=== PATIENT | male | born 1990 | race Caucasian/White ===

== ENCOUNTER 2021-05-07 18:40 | Inpatient (IN) | payer OTHER ==
[2021-05-07 19:14] VITALS: BMI 25.1
[2021-05-07] MEDS ORDERED: METHADONE HCL 10 MG TABLET (FOR DETOX USE ONLY) PO ONE (21:41)
[2021-05-07] MEDS ORDERED: MAGNESIUM HYDROX 2400MG/30ML ORAL SUSPENSION 30 ML CUP PO PRN (21:41)
[2021-05-07] MEDS ORDERED: P-EPHED 60MG/TRIPROLIDI 2.5MG TABLET PO PRN (21:41)
[2021-05-07] MEDS ORDERED: cloNIDine HCL 0.1 MG TABLET PO PRN (21:41)
[2021-05-07] MEDS ORDERED: DICYCLOMINE HCL 10 MG CAPSULE PO PRN (21:41)
[2021-05-07] MEDS ORDERED: MENTHOL/PHENOL 1 EACH UD MM PRN (21:41)
[2021-05-07] MEDS ORDERED: MAG HYDROX/AL HYDROX/SIMETH 30 ML UNIT-DOSE CUP PO PRN (21:41)
[2021-05-07] MEDS ORDERED: BISMUTH SUBSALICYLATE 524 MG/30 ML PO PRN (21:41)
[2021-05-07] MEDS ORDERED: IBUPROFEN 400 MG TABLET (FP) PO PRN (21:41)
[2021-05-07] MEDS ORDERED: NALOXONE HCL 0.4 MG/ML VIAL IM PRN (21:41)
[2021-05-07] MEDS ORDERED: MAGNESIUM CITRATE 300 ML BOTTLE PO PRN (21:41)
[2021-05-07] MEDS ORDERED: guaiFENesin 200 MG/10 ML 10 ML UNIT-DOSE CUPS PO PRN (21:41)
[2021-05-07] MEDS ORDERED: NICOTINE POLACRILEX 2 MG GUM BUC PRN (21:41)
[2021-05-07] MEDS ORDERED: NALOXONE (NARCAN) HCL 4 MG/0.1 ML SPRAY NS PRN (21:41)
[2021-05-07] MEDS ORDERED: ACETAMINOPHEN 325 MG TABLET (FP) PO PRN ×2 (21:41)
[2021-05-07] MEDS ORDERED: ONDANSETRON *ODT* 4 MG TABLET SL PRN (21:41)
[2021-05-07] MEDS: THIAMINE HCL 100 MG TABLET (FP) PO SCH (23:01)
[2021-05-07] MEDS: MELATONIN 5 MG TABLETS PO SCH (23:01)
[2021-05-07] MEDS: diazePAM 5 MG TABLET PO PRN (23:59)
[2021-05-08] MEDS ORDERED: METHADONE HCL 5 MG TABLET (FOR DETOX USE ONLY) ONE (08:47)
[2021-05-08] MEDS ORDERED: METHADONE HCL 10 MG TABLET (FOR DETOX USE ONLY) ONE (08:47)
[2021-05-08 09:27] LABS: HEMATOCRIT 32.6 % (35.4-49); HEMOGLOBIN 11.2 GM/dL (11.7-16.9); MCHC 34.2 g/dl (32.0-35.9); MEAN CELL VOLUME 87.8 fl (80-96); MEAN PLT VOLUME 8.3 fl (7.5-11.1); PLATELET COUNT 314 10^3/uL (134-434); RBC 3.72 M/mm3 (4.00-5.60); WHITE BLOOD COUNT 6.9 K/mm3 (4.0-10.0)
[2021-05-08 09:53] LABS: CALCIUM 8.6 mg/dL (8.5-10.1)
[2021-05-08 09:54] LABS: ALBUMIN 3.1 g/dl (3.4-5.0); BLOOD UREA NITROGEN 13.8 mg/dL (7-18)
[2021-05-08 09:57] LABS: CREATININE 0.8 mg/dL (0.55-1.3)
[2021-05-08 09:58] LABS: BILIRUBIN,TOTAL 0.2 mg/dL (0.2-1); TOT PROT 6.4 g/dl (6.4-8.2)
[2021-05-08] MEDS ORDERED: METHADONE (DETOX) 20 MG, METHADONE (DETOX) 5 MG PO ONE (10:00)
[2021-05-08] MEDS: PRENATAL VITAMINS W/ FOLIC ACID TABLET (FP) PO SCH (10:33)
[2021-05-08] MEDS: diazePAM 5 MG TABLET PO PRN ×3 (10:34→19:03)
[2021-05-08] MEDS: METHOCARBAMOL 500 MG TABLET PO PRN (14:45)
[2021-05-08] MEDS: hydrOXYzine PAMOATE 25 MG CAPSULE (FP) PO PRN (19:03)
[2021-05-08] MEDS: THIAMINE HCL 100 MG TABLET (FP) PO SCH (23:30)
[2021-05-08] MEDS: MELATONIN 5 MG TABLETS PO SCH (23:30)
[2021-05-09] MEDS: diazePAM 5 MG TABLET PO PRN ×4 (07:27→22:25)
[2021-05-09] MEDS ORDERED: METHADONE HCL 10 MG TABLET (FOR DETOX USE ONLY) PO ONE (10:00)
[2021-05-09] MEDS: hydrOXYzine PAMOATE 25 MG CAPSULE (FP) PO PRN ×3 (10:12→22:27)
[2021-05-09] MEDS: METHOCARBAMOL 500 MG TABLET PO PRN ×2 (10:12→17:56)
[2021-05-09] MEDS: PRENATAL VITAMINS W/ FOLIC ACID TABLET (FP) PO SCH (10:12)
[2021-05-09] MEDS: THIAMINE HCL 100 MG TABLET (FP) PO SCH (22:22)
[2021-05-09] MEDS: MELATONIN 5 MG TABLETS PO SCH (22:22)
[2021-05-10] MEDS ORDERED: METHADONE HCL 10 MG TABLET (FOR DETOX USE ONLY) ONE (09:44)
[2021-05-10] MEDS ORDERED: METHADONE HCL 5 MG TABLET (FOR DETOX USE ONLY) ONE (09:45)
[2021-05-10] MEDS: PRENATAL VITAMINS W/ FOLIC ACID TABLET (FP) PO SCH (09:51)
[2021-05-10] MEDS: hydrOXYzine PAMOATE 25 MG CAPSULE (FP) PO PRN ×3 (09:51→22:19)
[2021-05-10] MEDS: METHOCARBAMOL 500 MG TABLET PO PRN ×2 (09:51→17:37)
[2021-05-10] MEDS: diazePAM 5 MG TABLET PO PRN ×3 (09:52→22:19)
[2021-05-10] MEDS ORDERED: METHADONE (DETOX) 10 MG, METHADONE (DETOX) 5 MG PO ONE (10:00)
[2021-05-10] MEDS ORDERED: diazePAM 5 MG TABLET PO PRN ×4 (18:10→23:00)
[2021-05-10] MEDS: THIAMINE HCL 100 MG TABLET (FP) PO SCH (22:18)
[2021-05-10] MEDS: MELATONIN 5 MG TABLETS PO SCH (22:19)
[2021-05-11] MEDS: METHOCARBAMOL 500 MG TABLET PO PRN ×4 (03:15→21:42)
[2021-05-11] MEDS: diazePAM 5 MG TABLET PO PRN ×4 (03:15→21:42)
[2021-05-11] MEDS: hydrOXYzine PAMOATE 25 MG CAPSULE (FP) PO PRN ×3 (09:51→21:42)
[2021-05-11] MEDS: PRENATAL VITAMINS W/ FOLIC ACID TABLET (FP) PO SCH (09:52)
[2021-05-11] MEDS ORDERED: METHADONE HCL 10 MG TABLET (FOR DETOX USE ONLY) PO ONE (10:00)
[2021-05-11] MEDS: THIAMINE HCL 100 MG TABLET (FP) PO SCH (21:43)
[2021-05-11] MEDS: MELATONIN 5 MG TABLETS PO SCH (21:43)
[2021-05-12] MEDS: METHOCARBAMOL 500 MG TABLET PO PRN (05:31)
[2021-05-12] MEDS: hydrOXYzine PAMOATE 25 MG CAPSULE (FP) PO PRN (05:31)
[2021-05-12] MEDS ORDERED: METHADONE HCL 5 MG TABLET (FOR DETOX USE ONLY) PO ONE (06:00)
[2021-05-12 09:27] VITALS: BP 119/82; PULSE 100; TEMP 96.6
== END 2021-05-12 09:15 | disposition home or self-care (01) | DRG 773 ==
LOC: YASAS 18:40 → Y3N 21:51
PROVIDERS: ADMIT Allergy & Immunology; ATTEND Allergy & Immunology
PROC: HZ2ZZZZ Detoxification Services for Substance Abuse Treatment (ICD-10-PCS; principal; 2021-05-07)
DX: F11.23 Opioid dependence with withdrawal (principal); F12.20 Cannabis dependence, uncomplicated; F19.280 Other psychoactive substance dependence with psychoactive substance-induced anxiety disorder; F19.282 Other psychoactive substance dependence with psychoactive substance-induced sleep disorder; F19.24 Other psychoactive substance dependence with psychoactive substance-induced mood disorder; K59.03 Drug induced constipation; T40.2X5A Adverse effect of other opioids, initial encounter; Y92.238 Other place in hospital as the place of occurrence of the external cause; Z56.0 Unemployment, unspecified; Z59.0 Homelessness
CPT/HCPCS: 36415; 80053; 85027; 86780; 93005; 93010; C9803; U0003; U0005

== ENCOUNTER 2021-06-08 18:17 | Inpatient (IN) | payer OTHER ==
[2021-06-08] MEDS ORDERED: cloNIDine HCL 0.1 MG TABLET PO PRN (21:25)
[2021-06-08] MEDS ORDERED: BISMUTH SUBSALICYLATE 524 MG/30 ML PO PRN (21:25)
[2021-06-08] MEDS ORDERED: MAG HYDROX/AL HYDROX/SIMETH 30 ML UNIT-DOSE CUP PO PRN (21:25)
[2021-06-08] MEDS ORDERED: MAGNESIUM CITRATE 300 ML BOTTLE PO PRN (21:25)
[2021-06-08] MEDS ORDERED: ACETAMINOPHEN 325 MG TABLET (FP) PO PRN ×2 (21:25)
[2021-06-08] MEDS ORDERED: MENTHOL/PHENOL 1 EACH UD MM PRN (21:25)
[2021-06-08] MEDS ORDERED: methaDONE HCL 10 MG TABLET (FOR DETOX USE ONLY) PO ONE (21:25)
[2021-06-08] MEDS ORDERED: IBUPROFEN 400 MG TABLET (FP) PO PRN (21:25)
[2021-06-08] MEDS ORDERED: MAGNESIUM HYDROX 2400MG/30ML ORAL SUSPENSION 30 ML CUP PO PRN (21:25)
[2021-06-09 01:03] VITALS: BMI 24.6
[2021-06-09] MEDS: MELATONIN 5 MG TABLETS PO SCH (04:10)
[2021-06-09] MEDS ORDERED: methaDONE HCL 10 MG TABLET (FOR DETOX USE ONLY) ONE (04:22)
[2021-06-09] MEDS ORDERED: diazePAM 5 MG TABLET ONE ×2 (04:23→11:23)
[2021-06-09] MEDS: diazePAM 5 MG TABLET PO SCH ×4 (04:24→18:57)
[2021-06-09] MEDS: THIAMINE HCL 100 MG TABLET (FP) PO SCH (04:57)
[2021-06-09 10:49] LABS: HEMATOCRIT 36.4 % (35.4-49); HEMOGLOBIN 12.3 GM/dL (11.7-16.9); MCH 29.9 pg (25.7-33.7); MCHC 33.7 g/dl (32.0-35.9); MEAN CELL VOLUME 88.7 fl (80-96); MEAN PLT VOLUME 8.4 fl (7.5-11.1); PLATELET COUNT 372 10^3/uL (134-434); RDW 13.4 % (11.9-15.9)
[2021-06-09 11:24] LABS: ALBUMIN 3.2 g/dl (3.4-5.0); CALCIUM 8.8 mg/dL (8.5-10.1)
[2021-06-09 11:25] LABS: BLOOD UREA NITROGEN 18.6 mg/dL (7-18)
[2021-06-09 11:29] LABS: BILIRUBIN,TOTAL 0.3 mg/dL (0.2-1)
[2021-06-09] MEDS: PRENATAL VITAMINS W/ FOLIC ACID TABLET (FP) PO SCH (11:43)
[2021-06-09] MEDS: METHOCARBAMOL 500 MG TABLET PO PRN (20:19)
[2021-06-09] MEDS: diazePAM 5 MG TABLET PO PRN (20:56)
[2021-06-10] MEDS: diazePAM 5 MG TABLET PO SCH ×4 (00:06→21:37)
[2021-06-10] MEDS: THIAMINE HCL 100 MG TABLET (FP) PO SCH ×2 (00:06→21:33)
[2021-06-10] MEDS: MELATONIN 5 MG TABLETS PO SCH ×2 (00:06→21:36)
[2021-06-10] MEDS: METHOCARBAMOL 500 MG TABLET PO PRN ×2 (05:51→16:32)
[2021-06-10] MEDS: diazePAM 5 MG TABLET PO PRN ×3 (08:48→21:33)
[2021-06-10] MEDS ORDERED: methaDONE HCL 10 MG TABLET (FOR DETOX USE ONLY) ONE (09:19)
[2021-06-10] MEDS ORDERED: methaDONE HCL 10 MG TABLET (FOR DETOX USE ONLY) PO ONE (10:00)
[2021-06-10] MEDS: PRENATAL VITAMINS W/ FOLIC ACID TABLET (FP) PO SCH (10:06)
[2021-06-11] MEDS: diazePAM 5 MG TABLET PO SCH ×2 (07:26→17:00)
[2021-06-11] MEDS: PRENATAL VITAMINS W/ FOLIC ACID TABLET (FP) PO SCH (09:56)
[2021-06-11] MEDS: METHOCARBAMOL 500 MG TABLET PO PRN ×2 (09:57→22:08)
[2021-06-11] MEDS: diazePAM 5 MG TABLET PO PRN ×3 (09:58→18:58)
[2021-06-11] MEDS ORDERED: methaDONE HCL 10 MG TABLET (FOR DETOX USE ONLY) PO ONE (10:00)
[2021-06-11] MEDS: THIAMINE HCL 100 MG TABLET (FP) PO SCH (22:08)
[2021-06-11] MEDS: MELATONIN 5 MG TABLETS PO SCH (22:09)
[2021-06-11] MEDS ORDERED: hydrOXYzine PAMOATE 25 MG CAPSULE (FP) PO ONE (22:33)
[2021-06-12] MEDS ORDERED: diazePAM 5 MG TABLET PO ONE ×2 (06:00→18:00)
[2021-06-12] MEDS ORDERED: methaDONE HCL 10 MG TABLET (FOR DETOX USE ONLY) ONE (09:10)
[2021-06-12] MEDS ORDERED: methaDONE HCL 10 MG TABLET (FOR DETOX USE ONLY) PO ONE (10:00)
[2021-06-12] MEDS: hydrOXYzine PAMOATE 50 MG CAPSULE (FP) PO PRN ×2 (10:11→17:57)
[2021-06-12] MEDS: METHOCARBAMOL 500 MG TABLET PO PRN ×2 (10:11→17:57)
[2021-06-12] MEDS: PRENATAL VITAMINS W/ FOLIC ACID TABLET (FP) PO SCH (10:12)
[2021-06-12] MEDS: THIAMINE HCL 100 MG TABLET (FP) PO SCH (23:11)
[2021-06-12] MEDS: MELATONIN 5 MG TABLETS PO SCH (23:11)
[2021-06-13] MEDS: hydrOXYzine PAMOATE 50 MG CAPSULE (FP) PO PRN (08:52)
[2021-06-13 09:14] VITALS: BP 115/72; PULSE 76; TEMP 97.3
[2021-06-13] MEDS ORDERED: diazePAM 5 MG TABLET PO ONE (10:00)
[2021-06-13] MEDS ORDERED: methaDONE HCL 10 MG TABLET (FOR DETOX USE ONLY) PO ONE (10:00)
[2021-06-13] MEDS: METHOCARBAMOL 500 MG TABLET PO PRN (10:09)
[2021-06-13] MEDS: PRENATAL VITAMINS W/ FOLIC ACID TABLET (FP) PO SCH (10:09)
== END 2021-06-13 11:00 | disposition home or self-care (01) | DRG 773 ==
LOC: YASAS 18:17 → Y3N 06-09 11:08
PROVIDERS: ADMIT Allergy & Immunology; ATTEND Allergy & Immunology
PROC: HZ2ZZZZ Detoxification Services for Substance Abuse Treatment (ICD-10-PCS; principal; 2021-06-09)
DX: F11.23 Opioid dependence with withdrawal (principal); F13.230 Sedative, hypnotic or anxiolytic dependence with withdrawal, uncomplicated; F12.20 Cannabis dependence, uncomplicated; F14.10 Cocaine abuse, uncomplicated; L90.5 Scar conditions and fibrosis of skin; Z56.0 Unemployment, unspecified
CPT/HCPCS: 36415; 80053; 85027; 86780; C9803; U0003; U0005

== ENCOUNTER 2022-11-11 17:20 | Inpatient (IN) | payer OTHER ==
[2022-11-11 17:53] VITALS: BMI 23.6
[2022-11-11] MEDS ORDERED: MAGNESIUM HYDROX 2400MG/30ML ORAL SUSPENSION 30 ML CUP PO PRN (19:25)
[2022-11-11] MEDS ORDERED: LOPERAMIDE HCL 2 MG CAPSULE PO PRN (19:25)
[2022-11-11] MEDS ORDERED: P-EPHED 60MG/TRIPROLIDI 2.5MG TABLET PO PRN (19:25)
[2022-11-11] MEDS ORDERED: POLYETHYLENE GLYCOL (HEALTHYLAX) 3350 17 GM PACKET PO PRN (19:25)
[2022-11-11] MEDS ORDERED: guaiFENesin 200 MG/10 ML 10 ML UNIT-DOSE CUPS PO PRN (19:25)
[2022-11-11] MEDS ORDERED: ACETAMINOPHEN 325 MG TABLET (FP) PO PRN (19:25)
[2022-11-11] MEDS ORDERED: IBUPROFEN 400 MG TABLET (FP) PO PRN (19:25)
[2022-11-11] MEDS ORDERED: MAG HYDROX/AL HYDROX/SIMETH 30 ML UNIT-DOSE CUP PO PRN (19:25)
[2022-11-11] MEDS ORDERED: NICOTINE 10 MG CARTRIDGE (INHALER) IH PRN (19:25)
[2022-11-11] MEDS ORDERED: BENZOCAINE/MENTHOL (CHLORASEPTIC ) LOZENGE MM PRN (19:25)
[2022-11-11] MEDS: MELATONIN 5 MG TABLETS PO SCH (21:56)
[2022-11-11] MEDS: THIAMINE HCL 100 MG TABLET (FP) PO SCH (21:56)
[2022-11-11] MEDS: BACITRACIN 15 GM TUBE TOPICAL OINTMENT TP SCH (21:57)
[2022-11-12] MEDS ORDERED: methaDONE HCL 10 MG TABLET PO ONE (06:00)
[2022-11-12] MEDS: methaDONE 40 MG, methaDONE 30 MG PO SCH (06:31)
[2022-11-12 08:50] LABS: PH,URINE 6.5 (5.0-8.0); URINE APPEARANCE CLEAR; URINE BILIRUBIN NEGATIVE (NEGATIVE); URINE COLOR YELLOW; URINE GLUCOSE (UA) NEGATIVE (NEGATIVE); URINE KETONE NEGATIVE (NEGATIVE); URINE LEUK ESTERASE NEGATIVE (NEGATIVE); URINE NITRITE NEGATIVE (NEGATIVE); URINE PROTEIN NEGATIVE (NEGATIVE)
[2022-11-12] MEDS: BACITRACIN 15 GM TUBE TOPICAL OINTMENT TP SCH ×2 (10:10→21:41)
[2022-11-12] MEDS: NICOTINE 7 MG/24 HOURS TOPICAL PATCH TD SCH (10:10)
[2022-11-12] MEDS: PRENATAL VITAMINS W/ FOLIC ACID TABLET (FP) PO SCH (10:11)
[2022-11-12] MEDS: MELATONIN 5 MG TABLETS PO SCH (21:41)
[2022-11-12] MEDS: THIAMINE HCL 100 MG TABLET (FP) PO SCH (21:41)
[2022-11-13] MEDS: methaDONE 40 MG, methaDONE 30 MG PO SCH (05:49)
[2022-11-13] MEDS ORDERED: methaDONE HCL 10 MG TABLET PO ONE (06:00)
[2022-11-13] MEDS: NICOTINE 7 MG/24 HOURS TOPICAL PATCH TD SCH (09:47)
[2022-11-13] MEDS: BACITRACIN 15 GM TUBE TOPICAL OINTMENT TP SCH ×2 (09:47→21:46)
[2022-11-13] MEDS: PRENATAL VITAMINS W/ FOLIC ACID TABLET (FP) PO SCH (09:47)
[2022-11-13] MEDS ORDERED: PRENATAL VITAMINS W/ FOLIC ACID TABLET (FP) PO PRN (13:16)
[2022-11-13] MEDS ORDERED: NICOTINE 7 MG/24 HOURS TOPICAL PATCH TD PRN (13:16)
[2022-11-13] MEDS: THIAMINE HCL 100 MG TABLET (FP) PO SCH (21:46)
[2022-11-13] MEDS: MELATONIN 5 MG TABLETS PO SCH (21:46)
[2022-11-14] MEDS ORDERED: methaDONE HCL 10 MG TABLET PO SCH (09:30)
[2022-11-14] MEDS: BACITRACIN 15 GM TUBE TOPICAL OINTMENT TP SCH ×2 (10:45→21:47)
[2022-11-14] MEDS: methaDONE 40 MG, methaDONE 30 MG PO SCH (10:45)
[2022-11-14 18:57] LABS: HEMATOCRIT 43.5 % (35.4-49); HEMOGLOBIN 14.4 GM/dL (11.7-16.9); MCHC 33.1 g/dl (32.0-35.9); MEAN CELL VOLUME 87.6 fl (80-96); MEAN PLT VOLUME 8.3 fl (7.5-11.1); PLATELET COUNT 406 10^3/uL (134-434); RBC 4.96 M/mm3 (4.00-5.60); RDW 14.3 % (11.9-15.9); WHITE BLOOD COUNT 8.4 K/mm3 (4.0-10.0)
[2022-11-14 19:04] LABS: CALCIUM 9.6 mg/dL (8.5-10.1)
[2022-11-14 19:05] LABS: ALBUMIN 4.2 g/dl (3.4-5.0); BLOOD UREA NITROGEN 16.3 mg/dL (7-18)
[2022-11-14 19:08] LABS: CREATININE 0.9 mg/dL (0.55-1.3)
[2022-11-14 19:10] LABS: BILIRUBIN,TOTAL 0.5 mg/dL (0.2-1); TOT PROT 8.6 g/dl (6.4-8.2)
[2022-11-14] MEDS: MELATONIN 5 MG TABLETS PO SCH (21:47)
[2022-11-14] MEDS: THIAMINE HCL 100 MG TABLET (FP) PO SCH (21:47)
[2022-11-15] MEDS: methaDONE 40 MG, methaDONE 30 MG PO SCH (05:55)
[2022-11-15] MEDS: BACITRACIN 15 GM TUBE TOPICAL OINTMENT TP SCH ×2 (10:15→21:58)
[2022-11-15] MEDS: hydrOXYzine PAMOATE 25 MG CAPSULE (FP) PO PRN (21:21)
[2022-11-15] MEDS: MELATONIN 5 MG TABLETS PO SCH (21:21)
[2022-11-15] MEDS: THIAMINE HCL 100 MG TABLET (FP) PO SCH (21:21)
[2022-11-16] MEDS: methaDONE 40 MG, methaDONE 30 MG PO SCH (06:12)
[2022-11-16] MEDS: BACITRACIN 15 GM TUBE TOPICAL OINTMENT TP SCH ×2 (10:44→21:29)
[2022-11-16 13:34] LABS: HIV INTERPRETATION NEGATIVE (NEGATIVE)
[2022-11-16] MEDS: MELATONIN 5 MG TABLETS PO SCH (21:28)
[2022-11-16] MEDS: THIAMINE HCL 100 MG TABLET (FP) PO SCH (21:28)
[2022-11-16] MEDS: hydrOXYzine PAMOATE 25 MG CAPSULE (FP) PO PRN (21:29)
[2022-11-17] MEDS: methaDONE 40 MG, methaDONE 30 MG PO SCH (06:00)
[2022-11-17] MEDS: BACITRACIN 15 GM TUBE TOPICAL OINTMENT TP SCH ×2 (10:50→21:44)
[2022-11-17] MEDS: hydrOXYzine PAMOATE 25 MG CAPSULE (FP) PO PRN (21:43)
[2022-11-17] MEDS: THIAMINE HCL 100 MG TABLET (FP) PO SCH (21:43)
[2022-11-17] MEDS: MELATONIN 5 MG TABLETS PO SCH (21:43)
[2022-11-18] MEDS: methaDONE 40 MG, methaDONE 30 MG PO SCH (06:18)
[2022-11-18] MEDS: BACITRACIN 15 GM TUBE TOPICAL OINTMENT TP SCH ×2 (10:26→21:28)
[2022-11-18] MEDS: MELATONIN 5 MG TABLETS PO SCH (21:28)
[2022-11-18] MEDS: hydrOXYzine PAMOATE 25 MG CAPSULE (FP) PO PRN (21:28)
[2022-11-18] MEDS: THIAMINE HCL 100 MG TABLET (FP) PO SCH (21:28)
[2022-11-19] MEDS: methaDONE 40 MG, methaDONE 30 MG PO SCH (05:39)
[2022-11-19] MEDS: BACITRACIN 15 GM TUBE TOPICAL OINTMENT TP SCH ×2 (10:37→21:36)
[2022-11-19] MEDS: hydrOXYzine PAMOATE 25 MG CAPSULE (FP) PO PRN (21:36)
[2022-11-19] MEDS: MELATONIN 5 MG TABLETS PO SCH (21:36)
[2022-11-19] MEDS: THIAMINE HCL 100 MG TABLET (FP) PO SCH (21:36)
[2022-11-20] MEDS: methaDONE 40 MG, methaDONE 30 MG PO SCH (06:16)
[2022-11-20] MEDS: BACITRACIN 15 GM TUBE TOPICAL OINTMENT TP SCH ×2 (10:07→21:19)
[2022-11-20] MEDS: THIAMINE HCL 100 MG TABLET (FP) PO SCH (21:18)
[2022-11-20] MEDS: MELATONIN 5 MG TABLETS PO SCH (21:18)
[2022-11-20] MEDS: hydrOXYzine PAMOATE 25 MG CAPSULE (FP) PO PRN (21:19)
[2022-11-21] MEDS: methaDONE 40 MG, methaDONE 30 MG PO SCH (05:47)
[2022-11-21 06:53] VITALS: RESP 18
[2022-11-21] MEDS: BACITRACIN 15 GM TUBE TOPICAL OINTMENT TP SCH ×2 (10:39→21:31)
[2022-11-21] MEDS: hydrOXYzine PAMOATE 25 MG CAPSULE (FP) PO PRN (21:31)
[2022-11-21] MEDS: MELATONIN 5 MG TABLETS PO SCH (21:31)
[2022-11-21] MEDS: THIAMINE HCL 100 MG TABLET (FP) PO SCH (21:31)
[2022-11-22] MEDS: methaDONE 40 MG, methaDONE 30 MG PO SCH (06:13)
[2022-11-22] MEDS: BACITRACIN 15 GM TUBE TOPICAL OINTMENT TP SCH ×2 (10:46→21:08)
[2022-11-22] MEDS: MELATONIN 5 MG TABLETS PO SCH (21:07)
[2022-11-22] MEDS: hydrOXYzine PAMOATE 25 MG CAPSULE (FP) PO PRN (21:07)
[2022-11-22] MEDS: THIAMINE HCL 100 MG TABLET (FP) PO SCH (21:08)
[2022-11-23] MEDS: methaDONE 40 MG, methaDONE 30 MG PO SCH (06:13)
[2022-11-23] MEDS: BACITRACIN 15 GM TUBE TOPICAL OINTMENT TP SCH ×2 (10:14→21:25)
[2022-11-23] MEDS: MELATONIN 5 MG TABLETS PO SCH (21:25)
[2022-11-23] MEDS: hydrOXYzine PAMOATE 25 MG CAPSULE (FP) PO PRN (21:25)
[2022-11-23] MEDS: THIAMINE HCL 100 MG TABLET (FP) PO SCH (21:25)
[2022-11-24] MEDS: methaDONE 40 MG, methaDONE 30 MG PO SCH (06:00)
[2022-11-24 06:38] VITALS: BP 117/58; PULSE 79; TEMP 98
[2022-11-24] MEDS: BACITRACIN 15 GM TUBE TOPICAL OINTMENT TP SCH (10:10)
== END 2022-11-24 16:00 | disposition home or self-care (01) | DRG 772 ==
LOC: YASAS 17:20 → Y3W 21:13
PROVIDERS: ADMIT Allergy & Immunology; ATTEND Psychiatry & Neurology Pain Medicine
PROC: HZ42ZZZ Group Counseling for Substance Abuse Treatment, Cognitive-Behavioral (ICD-10-PCS; principal; 2022-11-11)
DX: F11.20 Opioid dependence, uncomplicated (principal); F10.20 Alcohol dependence, uncomplicated; F14.20 Cocaine dependence, uncomplicated; F19.280 Other psychoactive substance dependence with psychoactive substance-induced anxiety disorder; F32.A Depression, unspecified; Z28.310 Unvaccinated for COVID-19; Z28.9 Immunization not carried out for unspecified reason; Z56.0 Unemployment, unspecified; Z59.01 Sheltered homelessness
CPT/HCPCS: 36415; 80053; 81003; 85027; 86780; 86803; 87389; C9803-CS; U0003; U0005

== ENCOUNTER 2023-01-30 20:55 | Inpatient (IN) | payer OTHER ==
[2023-01-30 21:40] VITALS: BMI 24.6
[2023-01-30] MEDS ORDERED: ACETAMINOPHEN 325 MG TABLET (FP) PO PRN (22:07)
[2023-01-30] MEDS ORDERED: NALOXONE HCL 0.4 MG/ML VIAL IM PRN (22:07)
[2023-01-30] MEDS ORDERED: MAGNESIUM HYDROX 2400MG/30ML ORAL SUSPENSION 30 ML CUP PO PRN (22:07)
[2023-01-30] MEDS ORDERED: POLYETHYLENE GLYCOL (HEALTHYLAX) 3350 17 GM PACKET PO PRN (22:07)
[2023-01-30] MEDS ORDERED: BENZONATATE 200 MG CAPSULE PO PRN (22:07)
[2023-01-30] MEDS ORDERED: guaiFENesin 600 MG TABLET.ER (FP) PO PRN (22:07)
[2023-01-30] MEDS ORDERED: hydrOXYzine PAMOATE 25 MG CAPSULE (FP) PO PRN (22:07)
[2023-01-30] MEDS ORDERED: BENZOCAINE/MENTHOL (CHLORASEPTIC ) LOZENGE MM PRN (22:07)
[2023-01-30] MEDS ORDERED: NALOXONE HCL (KLOXXADO) 8 MG SPRAY NS PRN (22:07)
[2023-01-30] MEDS ORDERED: IBUPROFEN 400 MG TABLET (FP) PO PRN (22:07)
[2023-01-30] MEDS ORDERED: MAG HYDROX/AL HYDROX/SIMETH 30 ML UNIT-DOSE CUP PO PRN (22:07)
[2023-01-30] MEDS ORDERED: LOPERAMIDE HCL 2 MG CAPSULE PO PRN (22:07)
[2023-01-30] MEDS: MELATONIN 5 MG TABLETS PO SCH (23:12)
[2023-01-31] MEDS: PRENATAL VITAMINS W/ FOLIC ACID TABLET (FP) PO SCH (10:11)
[2023-01-31] MEDS: methaDONE HCL 40 MG DISPERSABLE TABLET PO SCH (10:11)
[2023-01-31] MEDS: THIAMINE HCL 100 MG TABLET (FP) PO SCH (21:45)
[2023-01-31] MEDS: MELATONIN 5 MG TABLETS PO SCH (21:45)
[2023-02-01] MEDS: methaDONE HCL 40 MG DISPERSABLE TABLET PO SCH (06:55)
[2023-02-01] MEDS: PRENATAL VITAMINS W/ FOLIC ACID TABLET (FP) PO SCH (10:49)
[2023-02-01 11:18] LABS: HEMATOCRIT 36.5 % (35.4-49); HEMOGLOBIN 12.3 GM/dL (11.7-16.9); MCHC 33.8 g/dl (32.0-35.9); MEAN CELL VOLUME 85.6 fl (80-96); MEAN PLT VOLUME 8.3 fl (7.5-11.1); PLATELET COUNT 377 10^3/uL (134-434); RBC 4.26 M/mm3 (4.00-5.60); WHITE BLOOD COUNT 5.5 K/mm3 (4.0-10.0)
[2023-02-01 11:28] LABS: CALCIUM 9.3 mg/dL (8.5-10.1)
[2023-02-01 11:29] LABS: ALBUMIN 3.5 g/dl (3.4-5.0)
[2023-02-01 11:32] LABS: CREATININE 0.9 mg/dL (0.55-1.3)
[2023-02-01 11:33] LABS: BILIRUBIN,TOTAL 0.4 mg/dL (0.2-1); TOT PROT 7.4 g/dl (6.4-8.2)
[2023-02-01 11:38] LABS: BLOOD UREA NITROGEN 15.7 mg/dL (7-18)
[2023-02-01 13:50] LABS: HIV INTERPRETATION NEGATIVE (NEGATIVE)
[2023-02-01] MEDS: THIAMINE HCL 100 MG TABLET (FP) PO SCH (21:53)
[2023-02-01] MEDS: MELATONIN 5 MG TABLETS PO SCH (21:53)
[2023-02-02] MEDS: methaDONE HCL 40 MG DISPERSABLE TABLET PO SCH (06:42)
[2023-02-02] MEDS: PRENATAL VITAMINS W/ FOLIC ACID TABLET (FP) PO SCH (10:31)
[2023-02-02] MEDS: MELATONIN 5 MG TABLETS PO SCH (21:32)
[2023-02-02] MEDS: THIAMINE HCL 100 MG TABLET (FP) PO SCH (21:32)
[2023-02-03] MEDS: methaDONE HCL 40 MG DISPERSABLE TABLET PO SCH (06:31)
[2023-02-03] MEDS: PRENATAL VITAMINS W/ FOLIC ACID TABLET (FP) PO SCH (10:10)
[2023-02-03] MEDS: MELATONIN 5 MG TABLETS PO SCH (21:51)
[2023-02-03] MEDS: THIAMINE HCL 100 MG TABLET (FP) PO SCH (21:51)
[2023-02-04] MEDS: methaDONE HCL 40 MG DISPERSABLE TABLET PO SCH (06:10)
[2023-02-04] MEDS: PRENATAL VITAMINS W/ FOLIC ACID TABLET (FP) PO SCH (10:15)
[2023-02-04] MEDS: THIAMINE HCL 100 MG TABLET (FP) PO SCH (21:48)
[2023-02-04] MEDS: MELATONIN 5 MG TABLETS PO SCH (21:48)
[2023-02-05] MEDS: methaDONE HCL 40 MG DISPERSABLE TABLET PO SCH (06:24)
[2023-02-05] MEDS: PRENATAL VITAMINS W/ FOLIC ACID TABLET (FP) PO SCH (10:20)
[2023-02-05] MEDS: MELATONIN 5 MG TABLETS PO SCH (21:53)
[2023-02-05] MEDS: THIAMINE HCL 100 MG TABLET (FP) PO SCH (21:53)
[2023-02-06] MEDS: methaDONE HCL 40 MG DISPERSABLE TABLET PO SCH (06:18)
[2023-02-06] MEDS: PRENATAL VITAMINS W/ FOLIC ACID TABLET (FP) PO SCH (11:16)
[2023-02-06] MEDS: THIAMINE HCL 100 MG TABLET (FP) PO SCH (21:51)
[2023-02-06] MEDS: MELATONIN 5 MG TABLETS PO SCH (21:51)
[2023-02-07] MEDS: methaDONE HCL 40 MG DISPERSABLE TABLET PO SCH (06:19)
[2023-02-07] MEDS ORDERED: COLLOIDAL OATMEAL 1 BAR EACH TP PRN (09:34)
[2023-02-07] MEDS: PRENATAL VITAMINS W/ FOLIC ACID TABLET (FP) PO SCH (10:57)
[2023-02-07] MEDS: MELATONIN 5 MG TABLETS PO SCH (21:42)
[2023-02-07] MEDS: THIAMINE HCL 100 MG TABLET (FP) PO SCH (21:42)
[2023-02-08] MEDS: methaDONE HCL 40 MG DISPERSABLE TABLET PO SCH (06:28)
[2023-02-08] MEDS: PRENATAL VITAMINS W/ FOLIC ACID TABLET (FP) PO SCH (09:52)
[2023-02-08] MEDS: COLLOIDAL OATMEAL 1 BAR EACH TP PRN (13:30)
[2023-02-08] MEDS: MELATONIN 5 MG TABLETS PO SCH (21:28)
[2023-02-08] MEDS: THIAMINE HCL 100 MG TABLET (FP) PO SCH (21:28)
[2023-02-09] MEDS: methaDONE HCL 40 MG DISPERSABLE TABLET PO SCH (06:25)
[2023-02-09] MEDS: PRENATAL VITAMINS W/ FOLIC ACID TABLET (FP) PO SCH (10:41)
[2023-02-09] MEDS: MELATONIN 5 MG TABLETS PO SCH (21:41)
[2023-02-09] MEDS: THIAMINE HCL 100 MG TABLET (FP) PO SCH (21:41)
[2023-02-10] MEDS: methaDONE HCL 40 MG DISPERSABLE TABLET PO SCH (06:39)
[2023-02-10] MEDS: PRENATAL VITAMINS W/ FOLIC ACID TABLET (FP) PO SCH (10:08)
[2023-02-10] MEDS: THIAMINE HCL 100 MG TABLET (FP) PO SCH (22:33)
[2023-02-10] MEDS: MELATONIN 5 MG TABLETS PO SCH (22:33)
[2023-02-11] MEDS: methaDONE HCL 40 MG DISPERSABLE TABLET PO SCH (06:43)
[2023-02-11] MEDS: PRENATAL VITAMINS W/ FOLIC ACID TABLET (FP) PO SCH (10:25)
[2023-02-11] MEDS: COLLOIDAL OATMEAL 1 BAR EACH TP PRN (10:26)
[2023-02-11] MEDS: MELATONIN 5 MG TABLETS PO SCH (22:33)
[2023-02-11] MEDS: THIAMINE HCL 100 MG TABLET (FP) PO SCH (22:33)
[2023-02-12] MEDS: methaDONE HCL 40 MG DISPERSABLE TABLET PO SCH (06:29)
[2023-02-12] MEDS: PRENATAL VITAMINS W/ FOLIC ACID TABLET (FP) PO SCH (11:10)
[2023-02-12] MEDS: MELATONIN 5 MG TABLETS PO SCH (22:03)
[2023-02-12] MEDS: THIAMINE HCL 100 MG TABLET (FP) PO SCH (22:03)
[2023-02-13] MEDS: methaDONE HCL 40 MG DISPERSABLE TABLET PO SCH (06:54)
[2023-02-13] MEDS: PRENATAL VITAMINS W/ FOLIC ACID TABLET (FP) PO SCH (10:28)
[2023-02-13] MEDS: MELATONIN 5 MG TABLETS PO SCH (21:48)
[2023-02-13] MEDS: THIAMINE HCL 100 MG TABLET (FP) PO SCH (21:48)
[2023-02-14] MEDS: methaDONE HCL 40 MG DISPERSABLE TABLET PO SCH (06:33)
[2023-02-14] MEDS: SALICYLIC ACID 1 APPLIC BOTTLE TP SCH ×2 (10:22→22:46)
[2023-02-14] MEDS ORDERED: PRENATAL VITAMINS W/ FOLIC ACID TABLET (FP) PO PRN (10:30)
[2023-02-14] MEDS: THIAMINE HCL 100 MG TABLET (FP) PO SCH (21:38)
[2023-02-14] MEDS: MELATONIN 5 MG TABLETS PO SCH (21:38)
[2023-02-15] MEDS: methaDONE HCL 40 MG DISPERSABLE TABLET PO SCH (06:12)
[2023-02-15] MEDS: IBUPROFEN 600 MG TABLET (FP) PO PRN (08:51)
[2023-02-15] MEDS: SALICYLIC ACID 1 APPLIC BOTTLE TP SCH ×2 (10:06→22:25)
[2023-02-15] MEDS: THIAMINE HCL 100 MG TABLET (FP) PO SCH (22:26)
[2023-02-15] MEDS: MELATONIN 5 MG TABLETS PO SCH (22:26)
[2023-02-16] MEDS: methaDONE HCL 40 MG DISPERSABLE TABLET PO SCH (05:56)
[2023-02-16] MEDS: SALICYLIC ACID 1 APPLIC BOTTLE TP SCH ×2 (09:35→21:55)
[2023-02-16] MEDS: IBUPROFEN 600 MG TABLET (FP) PO PRN (09:36)
[2023-02-16] MEDS: THIAMINE HCL 100 MG TABLET (FP) PO SCH (21:34)
[2023-02-16] MEDS: MELATONIN 5 MG TABLETS PO SCH (21:34)
[2023-02-17] MEDS: methaDONE HCL 40 MG DISPERSABLE TABLET PO SCH (06:14)
[2023-02-17] MEDS: SALICYLIC ACID 1 APPLIC BOTTLE TP SCH ×2 (10:22→22:55)
[2023-02-17] MEDS: MELATONIN 5 MG TABLETS PO SCH (22:54)
[2023-02-17] MEDS: THIAMINE HCL 100 MG TABLET (FP) PO SCH (22:54)
[2023-02-18] MEDS: methaDONE HCL 40 MG DISPERSABLE TABLET PO SCH (06:53)
[2023-02-18] MEDS: SALICYLIC ACID 1 APPLIC BOTTLE TP SCH ×2 (10:19→22:14)
[2023-02-18] MEDS: MELATONIN 5 MG TABLETS PO SCH (22:14)
[2023-02-18] MEDS: THIAMINE HCL 100 MG TABLET (FP) PO SCH (22:14)
[2023-02-19] MEDS: methaDONE HCL 40 MG DISPERSABLE TABLET PO SCH (06:14)
[2023-02-19] MEDS: SALICYLIC ACID 1 APPLIC BOTTLE TP SCH ×2 (09:51→21:46)
[2023-02-19] MEDS: MELATONIN 5 MG TABLETS PO SCH (21:46)
[2023-02-19] MEDS: THIAMINE HCL 100 MG TABLET (FP) PO SCH (21:46)
[2023-02-20] MEDS: methaDONE HCL 40 MG DISPERSABLE TABLET PO SCH (06:45)
[2023-02-20] MEDS: SALICYLIC ACID 1 APPLIC BOTTLE TP SCH ×2 (10:15→22:47)
[2023-02-20] MEDS: MELATONIN 5 MG TABLETS PO SCH (22:47)
[2023-02-20] MEDS: THIAMINE HCL 100 MG TABLET (FP) PO SCH (22:47)
[2023-02-21] MEDS: methaDONE HCL 40 MG DISPERSABLE TABLET PO SCH (05:52)
[2023-02-21] MEDS: SALICYLIC ACID 1 APPLIC BOTTLE TP SCH ×2 (10:24→22:48)
[2023-02-21] MEDS: THIAMINE HCL 100 MG TABLET (FP) PO SCH (22:48)
[2023-02-21] MEDS: MELATONIN 5 MG TABLETS PO SCH (22:48)
[2023-02-22] MEDS: methaDONE HCL 40 MG DISPERSABLE TABLET PO SCH (06:43)
[2023-02-22] MEDS: SALICYLIC ACID 1 APPLIC BOTTLE TP SCH ×2 (10:03→22:39)
[2023-02-22] MEDS: COLLOIDAL OATMEAL 1 BAR EACH TP PRN (10:16)
[2023-02-22] MEDS: THIAMINE HCL 100 MG TABLET (FP) PO SCH (22:39)
[2023-02-22] MEDS: MELATONIN 5 MG TABLETS PO SCH (22:39)
[2023-02-23] MEDS: methaDONE HCL 40 MG DISPERSABLE TABLET PO SCH (06:25)
[2023-02-23] MEDS: SALICYLIC ACID 1 APPLIC BOTTLE TP SCH ×2 (10:27→21:56)
[2023-02-23] MEDS: THIAMINE HCL 100 MG TABLET (FP) PO SCH (21:56)
[2023-02-23] MEDS: MELATONIN 5 MG TABLETS PO SCH (21:56)
[2023-02-24] MEDS: methaDONE HCL 40 MG DISPERSABLE TABLET PO SCH (06:34)
[2023-02-24] MEDS: SALICYLIC ACID 1 APPLIC BOTTLE TP SCH ×2 (09:36→22:42)
[2023-02-24] MEDS: THIAMINE HCL 100 MG TABLET (FP) PO SCH (22:42)
[2023-02-24] MEDS: MELATONIN 5 MG TABLETS PO SCH (22:42)
[2023-02-25] MEDS: methaDONE HCL 40 MG DISPERSABLE TABLET PO SCH (06:27)
[2023-02-25] MEDS: SALICYLIC ACID 1 APPLIC BOTTLE TP SCH ×2 (10:20→22:55)
[2023-02-25] MEDS: THIAMINE HCL 100 MG TABLET (FP) PO SCH (22:55)
[2023-02-25] MEDS: MELATONIN 5 MG TABLETS PO SCH (22:55)
[2023-02-26] MEDS: methaDONE HCL 40 MG DISPERSABLE TABLET PO SCH (06:24)
[2023-02-26] MEDS: SALICYLIC ACID 1 APPLIC BOTTLE TP SCH ×2 (10:18→22:12)
[2023-02-26] MEDS: MELATONIN 5 MG TABLETS PO SCH (22:13)
[2023-02-26] MEDS: THIAMINE HCL 100 MG TABLET (FP) PO SCH (22:13)
[2023-02-27] MEDS: methaDONE HCL 40 MG DISPERSABLE TABLET PO SCH (06:38)
[2023-02-27 07:28] VITALS: BP 134/80; PULSE 82; RESP 18; TEMP 97.5
== END 2023-02-27 09:30 | disposition home or self-care (01) | DRG 772 ==
LOC: YASAS 20:55 → Y3W 01-31 01:36
PROVIDERS: ADMIT Allergy & Immunology; ATTEND Psychiatry & Neurology Pain Medicine
PROC: HZ42ZZZ Group Counseling for Substance Abuse Treatment, Cognitive-Behavioral (ICD-10-PCS; principal; 2023-01-31)
DX: F10.20 Alcohol dependence, uncomplicated (principal); F14.20 Cocaine dependence, uncomplicated; F19.280 Other psychoactive substance dependence with psychoactive substance-induced anxiety disorder; F19.282 Other psychoactive substance dependence with psychoactive substance-induced sleep disorder; F19.24 Other psychoactive substance dependence with psychoactive substance-induced mood disorder; B07.8 Other viral warts; Z87.891 Personal history of nicotine dependence; Z56.0 Unemployment, unspecified; Z59.00 Homelessness unspecified; Z28.310 Unvaccinated for COVID-19
CPT/HCPCS: 36415; 80053; 85027; 86780; 86803; 87389; 93005; 93010; C9803-CS; U0003; U0005